=== PATIENT | female | born 1960 | race Two or more races ===

== ENCOUNTER 2024-05-04 20:07 | Emergency (ER) | payer OTHER ==
[~2024-05-04] VITALS: Ht 157.5 cm; Wt 66.0 kg
[2024-05-04 20:24] VITALS: BP 180/90; PULSE 78; RESP 16; TEMP 98.2
[2024-05-05] MEDS ORDERED: IBUP-1492 PO (00:05)
[2024-05-05] MEDS: IBUPROFEN 600 MG TABLET PO ONE (00:06)
== END 2024-05-05 00:31 | disposition home or self-care (01) ==
LOC: EMS 20:07
DX: S40.012A Contusion of left shoulder, initial encounter (principal); V89.2XXA Person injured in unspecified motor-vehicle accident, traffic, initial encounter; Y93.89 Activity, other specified; Y92.89 Other specified places as the place of occurrence of the external cause; Y99.8 Other external cause status
CPT/HCPCS: 29105; 99284; 73000-TC; 73030-TC; Z7502; Z7610